=== PATIENT | male | born 1975 | race Caucasian/White ===

== ENCOUNTER 2017-09-03 11:04 | Emergency (ER) | payer MEDICAID | END 2017-09-03 12:20 | disposition home or self-care (01) | LOC: FTE 11:04 | DX: S93.602A Unspecified sprain of left foot, initial encounter (principal); W18.39XA Other fall on same level, initial encounter; Y92.9 Unspecified place or not applicable | CPT/HCPCS: 99283; Z7502 ==

== ENCOUNTER 2017-09-28 09:54 | Emergency (ER) | payer MEDICAID | END 2017-09-28 11:49 | disposition home or self-care (01) | LOC: FTE 09:54 | DX: M25.572 Pain in left ankle and joints of left foot (principal) | CPT/HCPCS: 73610; 73630-LT; 99283-25 ==